=== PATIENT | female | born 1990 | race Caucasian/White ===

== ENCOUNTER 2020-10-16 11:30 | Emergency (ER) | payer MEDICAID ==
[~2020-10-16] VITALS: Ht 160 cm; Wt 72.7 kg
[2020-10-16 12:28] VITALS: BP 120/89
== END 2020-10-16 13:59 | disposition home or self-care (01) ==
LOC: ER 11:31
DX: U07.1 COVID-19 (principal)
CPT/HCPCS: 87635; 99283; C9803

== ENCOUNTER 2020-10-19 10:29 | Emergency (ER) | payer MEDICAID ==
[~2020-10-19] VITALS: Ht 160 cm; Wt 72.7 kg
[2020-10-19 10:48] VITALS: BP 153/129
[2020-10-19 12:21] LABS: BASOPHILS % (AUTO) 0.7 % (0-1); EOSINOPHILS % (AUTO) 0.8 % (0-6); HEMOGLOBIN 14.5 g/dl (12.0-16.0); LYMPHOCYTES # (AUTO) 1.4 X10'3 (1.1-4.8); LYMPHOCYTES % (AUTO) 29.3 % (21-51); MEAN CORPUSCULAR HEMOGLOBIN 29.3 PG (27.0-31.0); MEAN CORPUSCULAR HGB CONC 33.8 g/dL (33.0-36.5); MEAN CORPUSCULAR VOLUME 86.9 FL (78-98); MEAN PLATELET VOLUME 8.2 FL (7.4-10.4); MONOCYTES # (AUTO) 0.4 X10'3 (0-0.9); MONOCYTES % (AUTO) 8.9 % (2-12); NEUTROPHILS % (AUTO) 60.3 % (42-75); PLATELET COUNT 272 X10'3 (140-440); RED BLOOD COUNT 4.95 X10'6 (4.20-5.60); RED CELL DISTRIBUTION WIDTH 13.3 % (11.5-14.5); WHITE BLOOD COUNT 4.9 X10'3 (4.5-11.0)
[2020-10-19 12:33] LABS: CLARITY,URINE CLOUDY (Clear); COLOR,URINE YELLOW (Yellow); GLUCOSE, URINE NEGATIVE (Neg); KETONES,URINE NEGATIVE (Neg); LEUKOCYTE ESTERASE ,URINE TRACE (Neg); NITRITES, URINE NEGATIVE (Neg); OCCULT BLOOD,URINE NEGATIVE (Neg); PH,URINE 5.5 (4.8-8.0); PROTEIN,URINE NEGATIVE (Neg); UROBILINOGEN,URINE 0.2 E.U/dL (0.2-1.0)
[2020-10-19 12:34] LABS: ALANINE AMINOTRANSFERASE 41 U/L (12-78); ALBUMIN 4.1 G/DL (3.4-5.0); ALBUMIN/GLOBULIN RATIO 1.1 (1.1-1.5); ALKALINE PHOSPHATASE 92 IU/L (46-116); ANION GAP 12 (8-16); ASPARTATE AMINO TRANSFERASE 29 U/L (10-37); BILIRUBIN,TOTAL 0.3 MG/DL (0.1-1.0); BLOOD UREA NITROGEN 5 MG/DL (7-18); BUN/CREATININE RATIO 7.1 (6.6-38.0); CALCIUM 8.5 MG/DL (8.5-10.1); CHLORIDE 104 MMOL/L (99-107); GLUCOSE 86 MG/DL (70-104); SODIUM 139 MMOL/L (135-145); TOTAL CARBON DIOXIDE 22.9 MMOL/L (24-32); TOTAL PROTEIN 7.9 G/DL (6.4-8.2); eGFR > 90 ML/MIN
[2020-10-19 12:40] LABS: UA COLLECTION TYPE CLN CATCH MIDSTREAM
[2020-10-19 12:43] LABS: BACTERIA,URINE 1+ /HPF (Neg); MUCUS STRANDS MODERATE /LPF (Neg); RBC,URINE NONE SEEN /HPF (0-2); SQUAMOUS EPITHELIAL CELL,UR MANY /LPF (FEW)
[2020-10-19] MEDS ORDERED: CEPH250T PO (12:55)
--- NOTE | 2020-10-19 13:05 | NUR ---
pt seen and dc'd by provider
== END 2020-10-19 13:04 | disposition home or self-care (01) ==
LOC: ER 10:29
DX: U07.1 COVID-19 (principal); R19.7 Diarrhea, unspecified; R11.0 Nausea; R10.13 Epigastric pain; N39.0 Urinary tract infection, site not specified; R05 Cough; R50.9 Fever, unspecified; R53.1 Weakness; F17.200 Nicotine dependence, unspecified, uncomplicated; Z79.2 Long term (current) use of antibiotics
CPT/HCPCS: 36415; 71045; 80053; 81001; 85025; 99284

== ENCOUNTER 2021-11-17 20:30 | Emergency (ER) | payer MEDICAID ==
[~2021-11-17] VITALS: Ht 160 cm; Wt 78.2 kg
[2021-11-18 04:59] VITALS: BP 122/62
== END 2021-11-18 05:02 | disposition home or self-care (01) ==
LOC: ER 20:31
DX: K92.2 Gastrointestinal hemorrhage, unspecified (principal); K64.9 Unspecified hemorrhoids; Z87.448 Personal history of other diseases of urinary system
CPT/HCPCS: 99281

== ENCOUNTER 2022-02-27 14:28 | Emergency (ER) | payer MEDICAID ==
[~2022-02-27] VITALS: Ht 160 cm; Wt 76.7 kg
[2022-02-27 15:18] VITALS: BP 132/92
[2022-02-27] MEDS ORDERED: PENI500T2 PO (18:19)
[2022-02-27] MEDS ORDERED: HYDR-3972 PO (18:19)
[2022-02-27] MEDS ORDERED: HYDROcodone/acetaminophen 10/325mg tab PO ONE (18:25)
[2022-02-27] MEDS ORDERED: penicillin V potassium 500mg tablet PO ONE (18:25)
== END 2022-02-27 18:46 | disposition home or self-care (01) ==
LOC: ER 14:28
DX: K02.9 Dental caries, unspecified (principal); K08.89 Other specified disorders of teeth and supporting structures; F17.200 Nicotine dependence, unspecified, uncomplicated; Z87.440 Personal history of urinary (tract) infections
CPT/HCPCS: 99283

== ENCOUNTER 2022-05-12 07:02 | Emergency (ER) | payer MEDICAID ==
[~2022-05-12] VITALS: Ht 160 cm; Wt 77.0 kg
[2022-05-12 07:09] VITALS: BP 148/96
[2022-05-12 08:56] LABS: URINE HCG NEGATIVE (NEG)
[2022-05-12 09:04] LABS: CLARITY,URINE CLEAR (Clear); COLOR,URINE YELLOW (Yellow); GLUCOSE, URINE NEGATIVE (Neg); KETONES,URINE TRACE mg/dl (Neg); LEUKOCYTE ESTERASE ,URINE NEGATIVE (Neg); NITRITES, URINE NEGATIVE (Neg); OCCULT BLOOD,URINE TRACE-INTACT (Neg); PROTEIN,URINE NEGATIVE (Neg); UROBILINOGEN,URINE 0.2 E.U/dL (0.2-1.0)
[2022-05-12 09:12] LABS: BACTERIA,URINE NONE SEEN /HPF (Neg); MUCUS STRANDS FEW /LPF (Neg); RBC,URINE 0-2 /HPF (0-2); SQUAMOUS EPITHELIAL CELL,UR FEW /LPF (FEW); UA COLLECTION TYPE CLN CATCH MIDSTREAM; WBC,URINE NONE SEEN /HPF (0-4)
[2022-05-12] MEDS ORDERED: AMOX-580 PO (09:47)
[2022-05-12] MEDS ORDERED: ONDA-103 PO (09:47)
[2022-05-12] MEDS ORDERED: HYDR-3965 PO (09:47)
== END 2022-05-12 09:57 | disposition home or self-care (01) ==
LOC: ER 07:02
DX: K04.7 Periapical abscess without sinus (principal); R11.10 Vomiting, unspecified; F17.200 Nicotine dependence, unspecified, uncomplicated; Z79.899 Other long term (current) drug therapy
CPT/HCPCS: 81001; 81025; 99283

== ENCOUNTER 2023-08-23 19:27 | Emergency (ER) | payer MEDICAID ==
[~2023-08-23] VITALS: Ht 160 cm; Wt 77.3 kg
[~2023-08-23 19:27] MED LIST: ONDA-103 PO
[2023-08-23] MEDS ORDERED: CEFD300C3 PO (21:11)
[2023-08-23 21:17] VITALS: BP 121/75; PULSE 76; RESP 17; TEMP 98; O2SAT 98
== END 2023-08-23 21:20 | disposition home or self-care (01) ==
LOC: ER 19:28
DX: H66.92 Otitis media, unspecified, left ear (principal); Z79.899 Other long term (current) drug therapy
CPT/HCPCS: 99283